=== PATIENT | female | born 1985 | race African-American/Black ===

== ENCOUNTER → 2016-07-27 | Outpatient (CLI) | payer BC ==
[~2016-07-27] MED LIST: CARISOPRODOL350 MG PO; CIPROFLOXACIN500 M1 PO; DEPO-PROVER150 MG/ML IM; ENDOCET 5-3251 EACH PO; MONTELUKAST SOD10 MG PO; NOHOMEMEDS; PRENATAL VITAM1 EAC1 PO; ULTRAM50 MG PO; ZOFRAN ODT4 MG PO
== END | disposition home or self-care (01) ==
LOC: RAD 13:21
DX: D17.0 Benign lipomatous neoplasm of skin and subcutaneous tissue of head, face and neck (principal)
CPT/HCPCS: 70491